=== PATIENT | female | born 1985 | race Asian ===

== ENCOUNTER 2019-09-27 22:04 | Emergency (ER) | payer MEDICAID ==
[~2019-09-27] VITALS: Ht 157.5 cm; Wt 59.0 kg
[2019-09-27 22:07] VITALS: BP_SYST 134
[2019-09-28 00:57] LABS: BASOPHILS % (AUTO) 0.6 % (0.0-2.0); EOSINOPHILS # (AUTO) 0.1 K/uL (0.0-0.4); EOSINOPHILS % (AUTO) 1.3 % (0.0-4.0); HEMATOCRIT 39.7 % (36-48); HEMOGLOBIN 13.3 g/dL (12.0-16.0); LYMPHOCYTES # (AUTO) 1.4 K/uL (1.0-5.5); LYMPHOCYTES % (AUTO) 18.6 % (20.5-51.5); MEAN CORPUSCULAR HEMOGLOBIN 30 pg (27-31); MEAN CORPUSCULAR HGB CONC 34 % (32-36); MEAN CORPUSCULAR VOLUME 90 fL (79.0-98.0); MONOCYTES # (AUTO) 0.5 K/uL (0.0-1.0); MONOCYTES % (AUTO) 6.4 % (1.7-9.3); NEUTROPHILS # (AUTO) 5.4 K/uL (1.8-7.7); NEUTROPHILS % (AUTO) 73.1 % (40.0-70.0); PLATELET COUNT (AUTO) 360 K/uL (130-430); RED BLOOD CELL COUNT(AUTO) 4.42 MIL/uL (4.2-6.2); RED CELL DISTRIBUTION WIDTH 12.3 % (9.0-15.0); WHITE BLOOD COUNT (AUTO) 7.4 K/uL (4.8-10.8)
[2019-09-28 01:07] LABS: CALCIUM 9.1 mg/dL (8.4-11.0); CREATININE 0.87 mg/dL (0.55-1.30); POTASSIUM 3.9 mmol/L (3.5-5.1)
[2019-09-28 01:18] LABS: ALBUMIN 4.2 g/dL (3.4-4.8); TOTAL BILIRUBIN 0.2 mg/dL (0.0-1.0)
[2019-09-28 01:40] VITALS: BP_SYST 127
== END 2019-09-28 01:40 | disposition home or self-care (01) ==
LOC: SED 22:04
DX: J06.9 Acute upper respiratory infection, unspecified (principal); R07.89 Other chest pain
CPT/HCPCS: 36415; 71045; 80053; 81025; 82550-TC; 83880; 84484; 85025; 93005; 99285

== ENCOUNTER 2019-10-03 20:37 | Inpatient (IN) | payer MEDICAID ==
[~2019-10-03] VITALS: Ht 157.5 cm; Wt 60.8 kg
[2019-10-03 20:41] VITALS: BP_SYST 153
[2019-10-03 22:32] LABS: BASOPHILS % (AUTO) 0.3 % (0.0-2.0); EOSINOPHILS % (AUTO) 0.2 % (0.0-4.0); HEMATOCRIT 43.1 % (36-48); HEMOGLOBIN 14.5 g/dL (12.0-16.0); LYMPHOCYTES # (AUTO) 1.4 K/uL (1.0-5.5); LYMPHOCYTES % (AUTO) 17.4 % (20.5-51.5); MEAN CORPUSCULAR HEMOGLOBIN 31 pg (27-31); MEAN CORPUSCULAR HGB CONC 34 % (32-36); MEAN CORPUSCULAR VOLUME 91 fL (79.0-98.0); MONOCYTES # (AUTO) 0.3 K/uL (0.0-1.0); NEUTROPHILS # (AUTO) 6.1 K/uL (1.8-7.7); NEUTROPHILS % (AUTO) 78.1 % (40.0-70.0); PLATELET COUNT (AUTO) 396 K/uL (130-430); RED BLOOD CELL COUNT(AUTO) 4.75 MIL/uL (4.2-6.2); RED CELL DISTRIBUTION WIDTH 12.8 % (9.0-15.0); WHITE BLOOD COUNT (AUTO) 7.9 K/uL (4.8-10.8)
[2019-10-03 22:51] LABS: CALCIUM 9.1 mg/dL (8.4-11.0); CREATININE 0.97 mg/dL (0.55-1.30); POTASSIUM 4.1 mmol/L (3.5-5.1)
[2019-10-03 22:57] LABS: ALBUMIN 4.7 g/dL (3.4-4.8); TOTAL BILIRUBIN 0.3 mg/dL (0.0-1.0)
[2019-10-03] MEDS ORDERED: ASPIRIN 81 MG TAB.CHEW PO ONE (23:00)
[2019-10-03] MEDS ORDERED: FAMOTIDINE 20 MG TABLET PO ONE (23:00)
[2019-10-04 00:11] VITALS: BP_SYST 127
[2019-10-04 09:00] VITALS: BP_SYST 108
[2019-10-04 10:22] VITALS: BP_SYST 111
[2019-10-04 11:55] VITALS: BP_SYST 104
[2019-10-04 15:00] VITALS: BP_SYST 111
== END 2019-10-04 15:27 | disposition home or self-care (01) | DRG 203 ==
LOC: SED 20:37 → STU 23:10
PROVIDERS: ADMIT Student in an Organized Health Care Education/Training Program; ATTEND Student in an Organized Health Care Education/Training Program
DX: R07.89 Other chest pain (principal); F41.9 Anxiety disorder, unspecified; Z87.730 Personal history of (corrected) cleft lip and palate
CPT/HCPCS: 36415; 71045; 80053; 82550-TC; 83880; 84484; 85025; 85379; 93005; 93306; 99285; G0378

== ENCOUNTER 2020-07-14 13:03 | Emergency (ER) | payer MEDICAID ==
[~2020-07-14] VITALS: Ht 157.5 cm; Wt 61.7 kg
[2020-07-14 13:04] VITALS: BP_SYST 119
--- NOTE | 2020-07-14 13:05 | NUR ---
Pt brought by self, A&Ox4, pt presents to ER with palpitations and cold sweats, skin pink and warm, cap refill <3, VSS, respirations even and unlabored ,cap refill <3.
--- NOTE | 2020-07-14 13:15 | NUR ---
Dr Clark evaluating patient in the tent
[2020-07-14 13:58] VITALS: BP_SYST 119
--- NOTE | 2020-07-14 13:59 | NUR ---
Patient given written and verbal discharge instructions and verbalizes understanding. ER MD discussed with patient the results and treatment provided. Patient in stable condition. ID arm band removed. Rx of Atarax given. Patient educated on pain management and to follow up with PMD. Pain Scale 0/10. Opportunity for questions provided and answered. Medication side effect fact sheet provided.
== END 2020-07-14 13:59 | disposition home or self-care (01) ==
LOC: SED 13:03
DX: F41.9 Anxiety disorder, unspecified (principal); R00.2 Palpitations; Z86.2 Personal history of diseases of the blood and blood-forming organs and certain disorders involving the immune mechanism
CPT/HCPCS: 93005; 99283